=== PATIENT | male | born 1965 | race Caucasian/White ===

== ENCOUNTER 2017-10-24 23:31 | Emergency (ER) | payer OTHER ==
[~2017-10-24] VITALS: Ht 175.3 cm; Wt 84.4 kg
[2017-10-24 23:37] VITALS: BP 148/75; Ht 175.3 cm; Wt 84.4 kg
== END 2017-10-25 01:03 | disposition left against medical advice (07) ==
LOC: ED 23:31
DX: Z53.21 Procedure and treatment not carried out due to patient leaving prior to being seen by health care provider (principal)

== ENCOUNTER 2018-09-15 21:38 | Emergency (ER) | payer OTHER ==
[~2018-09-15] VITALS: Ht 175.3 cm; Wt 87.1 kg
[2018-09-15 21:53] VITALS: Ht 175.3 cm; Wt 87.1 kg
[2018-09-16 00:10] VITALS: BP 140/89
== END 2018-09-16 00:10 | disposition home or self-care (01) ==
LOC: ED 21:38
DX: S46.912A Strain of unspecified muscle, fascia and tendon at shoulder and upper arm level, left arm, initial encounter (principal); S20.212A Contusion of left front wall of thorax, initial encounter; S50.812A Abrasion of left forearm, initial encounter; V29.00XA Motorcycle driver injured in collision with unspecified motor vehicles in nontraffic accident, initial encounter; Y93.I9 Activity, other involving external motion; Y92.413 State road as the place of occurrence of the external cause; Y99.8 Other external cause status